=== PATIENT | female | born 1990 | race Caucasian/White ===

== ENCOUNTER 2017-10-21 14:48 | Emergency (ER) | payer OTHER ==
[~2017-10-21] VITALS: Ht 160 cm; Wt 108.4 kg
[2017-10-21 15:14] VITALS: Ht 160 cm; Wt 108.4 kg
[2017-10-21 17:09] LABS: BASOPHIL % 0.3 % (0-2); PLATELET COUNT 470 x10^3mcL (130-400); RED CELL DISTRIBUTION WIDTH 15.8 % (11.5-14.5)
[2017-10-21 17:17] LABS: CALCIUM 9.2 mg/dL (8.5-10.1); CARBON DIOXIDE 24.8 mmol/L (21-32); CHLORIDE SERUM 102 mmol/L (98-107); CREATININE SERUM 0.6 mg/dL (0.6-1.0); GFR1 > 60 mL/min; GLUCOSE SERUM 83 mg/dL (74-106); POTASSIUM SERUM 3.7 mmol/L (3.5-5.1); SODIUM SERUM 137 mmol/L (136-145)
[2017-10-21 17:27] LABS: ALBUMIN 3.7 g/dL (3.4-5.0); ALKALINE PHOSPHATASE 136 U/L (46-116); AST/SGOT 38 U/L (15-37); BILIRUBIN TOTAL 0.61 mg/dL (0.20-1.00)
[2017-10-21 18:21] LABS: ALT/SGPT 61 U/L (14-59)
[2017-10-21 18:37] VITALS: BP 99/54
== END 2017-10-21 18:37 | disposition home or self-care (01) ==
LOC: ED 14:48
PROVIDERS: Emergency Medicine
DX: R51 Headache (principal); R00.2 Palpitations; R94.5 Abnormal results of liver function studies
CPT/HCPCS: 36415; J1200; J2765